=== PATIENT | female | born 1960 | race Two or more races ===

== ENCOUNTER 2021-02-22 16:33 | Inpatient (IN) | payer MEDICAID, OTHER ==
[~2021-02-22] VITALS: Ht 165.1 cm; Wt 74.8 kg
[2021-02-22] MEDS ORDERED: DIPHENHYDRAMINE 50MG/ML VIAL IM STA (17:10)
[2021-02-22] MEDS ORDERED: HALOPERIDOL LACTATE 5MG/ML VIAL IM STA (17:10)
[2021-02-22 18:23] LABS: BASOPHILS % 0.5 % (0.0-2.0); EOSINOPHILS % 0.5 % (0.0-5.0); HEMOGLOBIN. 13.5 g/dL (12.0-16.0); LYMPHOCYTES % 19.9 % (20.0-50.0); MEAN CORPUSCULAR HEMOGLOBIN 31.2 pg (28.0-32.0); MEAN CORPUSCULAR VOLUME 87.5 fL (81.0-99.0); MONOCYTES % 6.6 % (2.0-8.0); NEUTROPHILS % 72.5 % (40.0-76.0); PLATELET 293 x1000/uL (130-400); RED BLOOD CELL COUNT 4.34 mill/uL (4.2-5.4); RED CELL DISTRIBUTION WIDTH 13.8 % (11.6-14.6)
[2021-02-22 18:30] LABS: CHLORIDE 88 mEq/L (98-107)
[2021-02-22 18:35] LABS: ETHANOL BLOOD < 10 mg/dL
[2021-02-22 18:39] LABS: CREATINE KINASE 703 IU/L (26-192)
[2021-02-22] MEDS ORDERED: DEXT 5%/0.45% NACL KCL 40MEQ/L 1,000 ML IV ONE (19:45)
[2021-02-22] MEDS ORDERED: SODIUM CHLORIDE 0.9% 1,000 ML IV ONE (19:45)
[2021-02-22] MEDS ORDERED: KETAMINE HCL 50 MG/ML 10ML IM ONE (20:00)
[2021-02-22 20:45] LABS: CLARITY URINE CLEAR (CLEAR); COLOR URINE YELLOW (YELLOW); KETONES URINE NEGATIVE (NEGATIVE); LEUKOCYTE ESTERASE URINE 3+ (NEGATIVE); NITRITE URINE POSITIVE (NEGATIVE); OCCULT BLOOD URINE 1+ (NEGATIVE); PH URINE 6.5 (4.5-8.0); PROTEIN URINE NEGATIVE (NEGATIVE); SPECIFIC GRAVITY URINE 1.005 (1.005-1.030); UROBILINOGEN URINE 0.2 E.U./dL (0.2-1.0)
[2021-02-22 21:00] LABS: *AMPHETAMINES SCREEN URINE NEGATIVE (NEGATIVE); CANNABINOID URINE SCREEN NEGATIVE (NEGATIVE); PHENCYCLIDINE URINE SCREEN NEGATIVE (NEGATIVE)
[2021-02-22 21:01] LABS: *BARBITURATES SCREEN URINE NEGATIVE (NEGATIVE); *BENZODIAZEPINES SCREEN URINE NEGATIVE (NEGATIVE); *COCAINE SCREEN URINE NEGATIVE (NEGATIVE); METHADONE URINE SCREEN NEGATIVE (NEGATIVE); OPIATES URINE SCREEN NEGATIVE (NEGATIVE)
[2021-02-22] MEDS ORDERED: KCL 10MEQ/50ML PREMIX 50 ML IV ONE (22:45)
[2021-02-22] MEDS ORDERED: CEFTRIAXONE 1 G PREMIX 50 ML IV ONE (22:45)
[2021-02-23] MEDS ORDERED: LORAZEPAM 2MG/ML CPJ IV ONE
[2021-02-23] MEDS ORDERED: SODIUM CHLORIDE 0.9% 1,000 ML IV SCH (10:00)
[2021-02-23] MEDS ORDERED: ACETAMINOPHEN 325MG TABLET PO PRN (10:00)
[2021-02-23] MEDS ORDERED: CEFTRIAXONE 1 G PREMIX 50 ML IV SCH (10:00)
[2021-02-23] MEDS ORDERED: HALOPERIDOL LACTATE 5MG/ML VIAL IM PRN (10:00)
[2021-02-23] MEDS ORDERED: LORAZEPAM 2MG/ML CPJ IV PRN (10:00)
[2021-02-23] MEDS ORDERED: ONDANSETRON HCL 4MG/2ML INJ IV PRN (10:00)
[2021-02-23 12:00] VITALS: BP 124/74
[2021-02-23 12:55] LABS: BASOPHILS % 0.5 % (0.0-2.0); EOSINOPHILS % 0.4 % (0.0-5.0); HEMATOCRIT. 40.7 % (36.0-48.0); HEMOGLOBIN. 14.7 g/dL (12.0-16.0); LYMPHOCYTES % 21.9 % (20.0-50.0); MEAN CORPUSCULAR HEMOGLOBIN 31.5 pg (28.0-32.0); MEAN CORPUSCULAR VOLUME 87.2 fL (81.0-99.0); MEAN PLATELET VOLUME 8.5 fl (7.4-10.4); MONOCYTES % 6.4 % (2.0-8.0); NEUTROPHILS % 70.8 % (40.0-76.0); PLATELET 297 x1000/uL (130-400); RED BLOOD CELL COUNT 4.67 mill/uL (4.2-5.4)
[2021-02-23 14:02] VITALS: BP 124/74
[2021-02-23] MEDS ORDERED: LEVO500T89 MT (14:10)
[2021-02-23] MEDS ORDERED: POTASSIUM CHLORIDE 20MEQ/PACKET PO NR (14:30)
[2021-02-23 17:22] VITALS: BP 124/74
[2021-02-23] MEDS ORDERED: CEFTRIAXONE 1,000 MG in DEXTROSE 5% WATER 50 ML IV SCH (22:00)
== END 2021-02-23 18:40 | disposition home or self-care (01) | DRG 463 ==
LOC: EDBD 16:33 → ER 16:33 → EDBD 21:59 → 8WST 21:59 → EDBEDREQTM 02-23 07:08 → EDBEDREQDT 02-23 07:08 → EDBEDREQSVC 02-23 07:08 → ENRESERV 02-23 08:13
PROVIDERS: ADMIT Internal Medicine; ATTEND Internal Medicine
DX: N39.0 Urinary tract infection, site not specified (principal); M62.82 Rhabdomyolysis; E87.1 Hypo-osmolality and hyponatremia; E87.8 Other disorders of electrolyte and fluid balance, not elsewhere classified; E87.6 Hypokalemia; Z87.820 Personal history of traumatic brain injury; Z78.1 Physical restraint status
CPT/HCPCS: 36415; 71045; 80048; 80053; 80305; 80307; 80320; 80329; 81003; 82140; 82550; 83605; 84443; 84484; 85025; 93005; 99285; J0696; J1200; J1630; J2060; J3480; J3490; J7030; G0480